=== PATIENT | male | born 1980 | race Caucasian/White ===

== ENCOUNTER 2016-12-08 19:37 | Emergency (ER) | payer BC ==
[~2016-12-08 19:37] MED LIST: AMLODIPINE BESY10 MG PO; ESKALITH-CR450 MG PO; FISH OIL; MAGNESIUM; NO MEDICATIONS; NORCO1 TAB 10/3 DOB; NORFLEX100 M1 PO; PRILOSEC PO; TOPAMAX25 MG PO; VITAMIN D; VOLTAREN75 MG PO; ZANTAC PO; ZESTRIL10 M2 PO
[2016-12-08 19:45] LABS: INFLUENZA A NEG (NEG); INFLUENZA B NEG (NEG)
== END 2016-12-08 20:20 | disposition home or self-care (01) ==
LOC: SED 19:37
PROVIDERS: Nurse Practitioner
DX: J02.0 Streptococcal pharyngitis (principal); I10 Essential (primary) hypertension; F17.200 Nicotine dependence, unspecified, uncomplicated
CPT/HCPCS: 87804; 87880; 96372; 99283; J0561